=== PATIENT | female | born 1985 | race Caucasian/White ===

== ENCOUNTER 2016-06-06 09:58 | Emergency (ER) | payer OTHER ==
--- NOTE | 2016-06-06 10:18 | ED Physician Documentation ---
General Adult - HISTORIAN Historian: patient - HPI Chief Complaint: General Adult Onset: other (3 years, occurs with mentrual periods) Timing: still present Severity: moderate Modifying Factors: none Context: occurs with menstrual periods Quality: sharp pain Location: bilateral pelvic area Further Comments: yes (Patient who has some chronic pain in her overies. Has had some fertility problems and was started on fertility drugs but has had some discomfort since then. States that she will develop pain to the "ovaries" associated with her periods. Has beengoing on for three years. Intermittently has to get some pain meds for it. Has been taking some Tylenol and Ibuprofen for it. Has been having some mild nausea but has not vomited. Had a cholecystectomy done the end of Apr. Has appointment on Sunday to see gynocologist for further treatment.) - ROS CONST: no problems. denies: fever GI/: abdominal pain, other (denies constipation). denies: problems urinating , vomiting, nausea, diarrhea, black stools - PAST HX Past History: none. denies: hypertension Surgeries/Procedures: , cholecystectomy (End of Apr) Allergies/Adverse Reactions: Allergies Allergy/AdvReac Type Severity Reaction Status Date / Time No Known Allergies Allergy Verified 06/06/16 11:05 Home Medications: Ambulatory Orders Medication Instructions Recorded Escitalopram Oxalate [Lexapro] 20 mg PO DAILY 06/06/16 clonazePAM [Klonopin] 2 mg PO TID PRN 06/06/16 traMADol HCL [Ultram] 50 mg PO Q6H PRN #10 tablet 06/06/16 - SOCIAL HX Smoking History: non-smoker Alcohol Use: none Drug Use: none - FAMILY HX Family History: No - REVIEWED ASSESSMENTS Nursing Assessment Reviewed: Yes Vitals Reviewed: Yes Progress - Progress Progress: 11:20 Patient states that the Tordal helped a little, usually does not help much, nausea is gone. 12:08 Pain much improved General Adult Physical Exam - PHYSICAL EXAM GENERAL APPEARANCE: no distress NECK: normal inspection, supple RESPIRATORY: no resp distress. No: wheezes, rales, rhonchi CVS: reg rate & rhythm, heart sounds normal, equal pulses. No: no murmur, no gallop ABDOMEN: soft, no organomegaly, normal bowel sounds, no distension, tenderness ( mild tenderness in the RUQ/epigastric area, Mild tenderness to right and left lower quadrant area, ), other (no masses). No: rebound, guarding SKIN: warm/dry EXTREMITIES: non-tender, normal range of motion NEURO: mood/affect nml, cognition normal Discharge Clincal Impression: Abdominal pain Prescriptions: traMADol HCL [Ultram] 50 mg PO Q6H PRN #10 tablet PRN Reason: Pain Referrals: Primary Doctor,No [Primary Care Provider] - 2 Days Additional Instructions: Contact your primary care provider for further pain management of your chronic intermittent pain. Drink a lot of fluids. Return to ED if your pain gets worse. Home Medications: Ambulatory Orders Escitalopram Oxalate [Lexapro] 20 mg PO DAILY 06/06/16 clonazePAM [Klonopin] 2 mg PO TID PRN 06/06/16 traMADol HCL [Ultram] 50 mg PO Q6H PRN #10 tablet 06/06/16 Condition: Stable Disposition: HOME, SELF-CARE Decision to Admit: NO Date of Decison to Admit: 06/06/16 Decision Time: 11:24
[2016-06-06] MEDS ORDERED: ONDANSETRON HCL 4 MG TAB.RAPDIS PO PRN (10:20)
[2016-06-06] MEDS ORDERED: KETOROLAC TROMETHAMINE 60 MG/2 ML VIAL IM ONE (10:20)
[2016-06-06] MEDS ORDERED: ONDANSETRON HCL 4 MG TAB.RAPDIS ONE (10:26)
[2016-06-06] MEDS ORDERED: fentaNYL CITRATE/PF 100 MCG/ 2ML AMP IM ONE (11:21)
[2016-06-06 12:41] VITALS: BP 152/99
== END 2016-06-06 12:34 | disposition home or self-care (01) ==
LOC: ED 09:58
DX: R10.9 Unspecified abdominal pain (principal)
CPT/HCPCS: 96372; 99283; J1885; J3010; A9270